=== PATIENT | female | born 1965 | race Caucasian/White ===

== ENCOUNTER 2016-10-13 08:29 | Emergency (ER) | payer BC ==
[2016-10-13] MEDS ORDERED: NS 0.9% 1000 ML* 2,000 ML IV ONE (08:49)
--- NOTE | 2016-10-13 09:13 | RAD ---
HISTORY: Palpitation COMPARISONS: September 09, 2009 VIEWS:1: Single frontal portable view of the chest at 9:00 AM FINDINGS: LINES AND TUBES: None. CARDIOMEDIASTINAL SILHOUETTE: The cardiomediastinal silhouette is normal for portable technique. PLEURA: The costophrenic angles are sharp. No pleural abnormalities are noted. LUNG PARENCHYMA: The lungs are clear. ABDOMEN: The upper abdomen is clear. There is no subphrenic gas. BONES AND SOFT TISSUES: No bone or soft tissue abnormalities are noted. IMPRESSION: NO ACTIVE CARDIOPULMONARY DISEASE.
[2016-10-13 09:14] LABS: Hematocrit 40 % (35-47); Hemoglobin 13.2 g/dl (12.0-16.0); Mean Corpuscular HGB Conc 33 g/dl (31-36); Mean Corpuscular Hemoglobin 32 pg (27-31); Mean Corpuscular Volume 95 fL (80-97); Mean Platelet Volume 9 um3 (7.4-10.4); Red Blood Count 4.15 10^6/ul (4.0-5.4); Red Cell Distribution Width 13 % (10.5-15); White Blood Count 5.3 10^3/ul (3.5-10.8)
[2016-10-13 09:25] LABS: Albumin 4.2 g/dL (3.2-5.2); Calcium 8.9 mg/dL (8.6-10.3); Globulin 2.3 g/dL (2-4); Total Bilirubin 0.7 mg/dL (0.2-1.0); Total Protein 6.5 g/dL (6.4-8.9)
[2016-10-13 09:41] LABS: Potassium 3.9 mmol/L (3.5-5.0)
[2016-10-13 09:46] LABS: TSH (Thyroid Stimulating Horm) 2.48 mcIU/mL (0.34-5.60)
[2016-10-13] MEDS ORDERED: Digoxin IV* 0.5 MG/2 ML AMP (0.25 MG/ML) IV SLOW PU ONE (10:21)
[2016-10-13 10:37] LABS: Urine Bilirubin Negative (Negative); Urine Glucose Negative (Negative); Urine Nitrite Negative (Negative)
[2016-10-13 10:44] LABS: BUN/Creatinine Ratio 12.9 (8-20); EGFR African American 91.4 (>60); EGFR Non-African American 71.1 (>60)
[2016-10-13] MEDS: KCL 10 MEQ/50 ML IVPREMIX* 10 MEQ/50 ML BAG IV SCH ×2 (11:14→11:58)
[2016-10-13] MEDS ORDERED: Enoxaparin(*) 80 MG/0.8 ML SYR SUBCUT ONE (11:54)
[2016-10-13] MEDS ORDERED: Diltiazem IV VIAL* 125 MG in D5W 100 ML BAG* 100 ML IV ONE (11:54)
[2016-10-13] MEDS ORDERED: Diltiazem IV* 5 MG/ML 5 ML VIAL (for loading dose/IV Push) (25 MG) IV SLOW PU ONE (11:54)
[2016-10-13] MEDS ORDERED: fentaNYL* 50 MCG/ML 2 ML VIAL (100 MCG VIAL) ONE (13:17)
[2016-10-13] MEDS ORDERED: Midazolam* 1 MG/ML 5 ML VIAL (5 MG) ONE (13:17)
[2016-10-13] MEDS ORDERED: Naloxone* 0.4 MG/ML 1 ML VIAL ONE (13:18)
[2016-10-13] MEDS ORDERED: Flumazenil* 0.1 MG/ML 5 ML MDV ONE (13:18)
[2016-10-13 15:44] VITALS: BP 110/39
--- NOTE | 2016-10-13 15:55 | TEE ---
Patient: JEREMIAS HOPKINS [facility] Rec#: [id number] : 1965 Date: 10/13/2016 Age: 51y Height: 172.72 cm / 68.0 in Weight: 66.68 kg / 147.0 lbs Sex: F BSA: 1.79 Room#: [facility] Type: Outpatient Referring: Ceferino Martinez MD Reading: Ceferino Martinez MD [address] Court Registrar: Louise Yadav RDCS Nurse: NIKOS Cuba Alicia CC: Sonia Foster MD Transesophageal Echocardiogram Indication: A-fib BP: 118/63 HR: 133 Rhythm: A-Fib Findings History: A-fib 2009 Technical Comments: The study quality is good. Left Ventricle: The left ventricular chamber size is normal. There is mildly decreased left ventricular systolic function.Relative anterior anteroseptal hypokinesis. The estimated ejection fraction is 45-50%. The assessment of diastolic function is non-diagnostic. Left Atrium: The left atrium is moderately dilated. No thrombus is visualized within the left atrium. There is no thrombus visualized in the left atrial appendage. Right Ventricle: The right ventricular cavity size is normal. The right ventricular global systolic function is mildly reduced. Right Atrium: The right atrium is mildly dilated. Interatrial septum appears intact without evidence of shunting. A patent foramen ovale is not demonstrated by color Doppler. Aortic Valve: The aortic valve is trileaflet. There is no evidence of aortic regurgitation. There is no evidence of aortic stenosis. Mitral Valve: The mitral valve leaflets are mildly thickened. There is mild to moderate mitral regurgitation. Varies somewhat with the rapid irregular rhythm. There is no evidence of mitral stenosis. Tricuspid Valve: The tricuspid valve leaflets are normal. There is trace tricuspid regurgitation. There is no tricuspid stenosis. Pulmonic Valve: The pulmonic valve appears normal. There is no evidence of pulmonic regurgitation. Pericardium: There is no significant pericardial effusion. Aorta: There is no dilatation of the ascending aorta. There is no dilation of the aortic root. There is no plaque visualized in the ascending aorta. There is no plaque visualized in the transverse aorta. Pulmonary Artery: The main pulmonary artery appears normal. Venous: The bicaval view was obtained and appears normal. The pulmonary veins appear normal in size. 3 of 4 visualized. The flow pattern of the pulmonary veins appear normal. GLENNA Procedures: All standard views were attempted within the limitations of patient tolerance and safety. History and physical as well as labs were reviewed. The patient was in a fasting state. Risks and benefits of the procedure, including alternatives, were discussed and written informed consent was obtained. The patient and/or their health care outreach representative expressed understanding of the procedure, risks and benefits. Baseline and continuous monitoring of blood pressure, heart rate, pulse oximetry and heart rhythm was performed throughout the procedure. The appropriate time-out procedure was performed as per [facility] protocol. The patient was placed in the left lateral decubitus position. The patient received IV Midazolam with a total dose of 9 mg. The patient received IV Fentanyl with a total dose of 50 mcg. An oral bite block was inserted for protection of oral dentition. The multiplane transesophageal echocardiogram probe was inserted through the posterior oropharynx and advanced into the esophagus without difficulty. Multiple 2D images were obtained of the heart and its related structures. Color flow Doppler was used for evaluation. Spectral Doppler was also used. The atrial septum was interrogated with color flow Doppler. At the conclusion of the procedure the probe was removed with continuous suction without complications. The patient tolerated the procedure with no apparent complications. Conclusions There is mildly decreased left ventricular systolic function.Relative anterior anteroseptal hypokinesis. The estimated ejection fraction is 45-50%. The left atrium is moderately dilated. No thrombus is visualized within the left atrium. The right ventricular global systolic function is mildly reduced. The right atrium is mildly dilated. There is trace tricuspid regurgitation. There is mild to moderate mitral regurgitation. The MR varies somewhat with the rapid irregular rhythm. There is trace tricuspid regurgitation. Similar to 2.2010 Measurements Name Value Normal Range Aortic Annulus 1.9 cm (1.4 - 2.6) Ao root diameter (2D) 3.3 cm (2.1 - 3.5) Ascending Ao 3 cm (2.1 - 3.4) Name Value Normal Range MV E-wave Vmax 0.75 m/sec - MV deceleration time 220.9 msec - MV E:A ratio 82.73 ratio -
--- NOTE | 2016-10-13 16:07 | CONS ---
CC: Dr. Foster CARDIOLOGY CONSULTATION: DATE OF CONSULT: 10/13/16 REASON FOR EVALUATION: Atrial fibrillation. HISTORY OF PRESENT ILLNESS: This is a very pleasant 51-year-old woman who has a history of paroxysmal atrial fibrillation, who was in her usual state of health until last night. She got up to go to the bathroom, noticed her heart was a little fast and went back to sleep. She said she woke up this morning and noted that her heart was fast. While she was trying to make breakfast, she noted that her heart was speeding up and she was lightheaded, had some tingling in her hands. That was about 7:30 a.m. Because of those symptoms, she decided to go to the emergency room. She was in the emergency room, noted to be in atrial fibrillation with rapid ventricular response varying from the 90s to 140s. She also had blood pressure 90s to 120s. She sometimes feels a little lightheaded when her brother pressure is higher. She received some IV fluids here and is feeling better, but still has heart rates in the 120s to 140s. She denies syncope. No orthopnea. No fevers, chills, sweats, hematemesis, hematochezia, strokes, or mini strokes. She normally exercises regularly, plays hockey once a week and feels well doing that. She also works out at the gym and does the treadmill for 25 to 30 minutes 5 times a week. She has occasional alcohol use. She drinks one cup of tea a day and one cup of coffee a week. She denies hypertension, diabetes, hyperlipidemia, tobacco use. She had a cardioversion in 1998 and again in 2009. She apparently in April 2009 had a GLENNA and mild to moderate MR with EF of 45% to 50%. In May of 2009 , she had trace MR and normal EF of 55% to 60%. In 1998, she was first diagnosed with AFib at the [facility] when she had dyspnea , dizziness, and GLENNA cardioversion. In May 2002, she had a rapid ventricular response treated with IV diltiazem and converted spontaneously. PAST SURGICAL HISTORY: Includes a calcified breast nodule removed from her left breast about 5 years ago. She had a breast lumpectomy on the left in May of 2012. MEDICATIONS: Her only medication including a contraceptive 0.35 mg daily. As an inpatient, she is on IV fluids and got 1.25 mg of digoxin. ALLERGIES: Include seasonal allergies, no drug allergies. FAMILY HISTORY: Reveals a mother who has AFib at 82. Father who is 86 with hypertension. She has 2 brothers and a sister, alive and well. SOCIAL HISTORY: She is , accompanied by her and her one child. She works at the [employer]. REVIEW OF SYSTEMS: Review of systems x10 was negative except as above. PHYSICAL EXAM: She is a well-developed, well-nourished female, thin, in no apparent distress. Her blood pressure is varying from 94/40 to 119/73 and her blood pressure most recently was 147 systolic, no significant JVD. Atraumatic, normocephalic. Extraocular muscles intact. Sclerae anicteric. No significant JVD. Cardiac Exam: S1 and S2, irregular, rapid with a midsystolic click. No murmurs. Chest was clear. No CVAT. Abdomen: Bowel sounds present, nontender. Femoral pulses intact. Motor strength 5/5 bilaterally. Deep tendon reflexes 2/4. Alert and oriented x3. DIAGNOSTIC STUDIES/LAB DATA: Chest x-ray revealed no active cardiopulmonary disease, and EKG from 08:43 revealed AFib with a rapid ventricular response in the 120s, minor nonspecific ST-T changes. Her last EKG from October 2013 revealed sinus rhythm with no acute changes and her echocardiogram in November 2013 revealed EF of 50% to 55%, closer to 55%, trace to mild MR, trace TR, trace TI similar to December 2010, and her Holter monitor from October of 2013 revealed sinus rhythm with frequent PVCs. No APCs. No VT or SVT. She had 7199 VPCs and 14 APCs. IMPRESSION: My impression is that Mrs. Rojas has a recurrent episode of atrial fibrillation. Although it has been brief, she has a history of LV dysfunction in the past, and therefore, I recommend to follow on. Given the potential risks of stroke, I suggested subcu Lovenox 70 mg now and then oral anticoagulation for a month after cardioversion. She is to begin diltiazem cautiously 10 mg IV and then 5 mg an hour to see if we can control her rate and if she will convert. We will try to maintain potassium over 4 and she is being supplemented currently. Agree with a trial of digoxin given her low normal blood pressures. If she fails to convert, we will proceed with GLENNA-guided cardioversion. The risks and benefits were discussed with the patient, who understands and agrees to proceed. [id number]/[facility] #: [id number] addendum: pt successfully cardioverted. Discussed with Dr. Cruz. To start anticoagulation for 1 month. MTDD
--- NOTE | 2016-10-13 23:32 | CARD ---
CC: Dr. Martinez; Dr. Foster CARDIOLOGY PROCEDURE NOTE: DATE OF PROCEDURE: 10/13/16 REASON FOR PROCEDURE: Atrial fibrillation. INDICATIONS: This is a very pleasant 51-year-old woman with a longstanding history of paroxysmal at rial fibrillation, last cardioversion was in 2009. She developed racing heart rate last night assoc iated with some lightheadedness at times. She came to the emergency room, felt to be in rapid AFib. She was treated with IV digoxin and IV diltiazem with some slowing of her rate. DESCRIPTION OF PROCEDURE: Informed consent was obtained and she was in the fasting state. Risks an d benefits were reviewed and included but not limited to stroke, aspiration, and sore throat. The p atient had transesophageal echo, which was performed with 9 mg of Versed and 50 mcg of fentanyl. It revealed no left atrial appendage or left atrial thrombus. In addition, 2 mg of Versed was given and a single synchronized biphasic shock 120 joules was delive red with successful conversion to sinus rhythm. IMPRESSION: Paroxysmal atrial fibrillation with successful conversion to sinus rhythm. The patient will undergo recovery for conscious sedation. If she remains stable, consider discharge with a month of anticoagulation. [id number]/[facility] #: [id number]
== END 2016-10-13 16:00 | disposition home or self-care (01) ==
LOC: ED 08:29
DX: I48.91 Unspecified atrial fibrillation (principal)
CPT/HCPCS: 36415; 71010; 80053; 81003; 83605; 83735; 84443; 84484; 85025; 85610; 85730; 92960; 93005; 93312; 93325; 96360; 96374; 96375; 99156; 99157; 99285; J1160; J1650; J2250; J2310; J3010; J3480

== ENCOUNTER 2018-08-09 22:06 | Emergency (ER) | payer OTHER ==
[2018-08-09] MEDS ORDERED: Diltiazem IV push/loading dose 5 MG/ML 5 ML vial (25 mg) IV SLOW PU ONE (22:41)
[2018-08-09] MEDS ORDERED: Diltiazem IV VIAL* 125 MG in NS 0.9% 100 ML* 100 ML IV ONE (22:41)
[2018-08-09] MEDS ORDERED: NS 0.9% 1000 ML** 1,000 ML IV ONE (22:42)
[2018-08-09] MEDS ORDERED: Rivaroxaban TAB(*) 20 MG TAB PO SCH (23:00)
[2018-08-09] MEDS ORDERED: Propofol* 10 MG/ML 20 ML BTL IV PUSH ONE (23:27)
--- NOTE | 2018-08-09 23:29 | ED ---
HPI Cardiac - HPI Summary HPI Summary: This pt is a 53 y/o F presenting to [facility] with a CC of rapid heart rate. Her heart rate started moving fast before bed and then was still moving fast while laying down getting ready for bed tonight. Waited a minute or two due to Hx of episodes. Called friend to drive her to [facility]. She had a busy week but was extremely fatigued today. Has a HX of cardioversion and AFIB but does not take any medications. Pt states that she ate popcorn and coughed dramatically and her episode started after that. She denies HR, chest pain, and any alcoholic or substance ingested today. Pt reports that the rate changed about 20 minute [employer]. - History of Current Complaint Chief Complaint: EDDysrhythmPalp Stated Complaint: AFIB PER PT Time Seen by Provider: 08/09/18 22:41 Hx Obtained From: Patient Onset/Duration: Started Hours Ago, Still Present Time of Onset: 21:00 Timing: Constant Initial Severity: Mild Current Severity: None Pain Intensity: 0 Pain Scale Used: 0-10 Numeric Aggravating Factor(s): Nothing Alleviating Factor(s): Nothing Associated Signs and Symptoms: Positive: Other: - rapid heart rate. Negative: Chest Pain, Headaches - Allergy/Home Medications Allergies/Adverse Reactions: Allergies Allergy/AdvReac Type Severity Reaction Status Date / Time No Known Allergies Allergy Verified 08/09/18 22:09 Home Medications: Home Medications Loratadine [Claritin Reditabs 5 MG] 10 mg PO DAILY 08/09/18 [History Confirmed 08/09/18] PMH/Surg Hx/FS Hx/Imm Hx Previously Healthy: No Cardiovascular History: Reports: Hx Atrial Fibrillation Sensory History: Denies: Hx Legally Blind, Hx Deafness Opthamlomology History: Denies: Hx Legally Blind Infectious Disease History: No Infectious Disease History: Reports: Traveled Outside the [place] in Last 30 Days - Family History Known Family History: Negative: Diabetes - Social History Alcohol Use: Occasionally Hx Substance Use: No Substance Use Type: Reports: None Smoking Status (MU): Never Smoked Tobacco Review of Systems Positive: Palpitations. Negative: Chest Pain Negative: Headache All Other Systems Reviewed And Are Negative: Yes Physical Exam - Summary Physical Exam Summary: Appearance: Well-appearing, Well-nourished, lying in bed comfortably Skin: Warm, dry, no obvious rash Eyes: sclera anicteric, no conjunctival pallor ENT: mucous membranes moist, pharynx appears normal Neck: Supple, nontender Respiratory: Clear to auscultation, no signs of respiratory distress Cardiovascular: Normal S1, S2. No murmurs. Normal distal pulses in tibial and radial bilaterally. Rapid irregular irregularly heart rate. Abdomen: Soft, nontender, normal active bowel sounds present Musculoskeletal: Normal, Strength/ROM Intact Neurological: A&Ox3, awake and alert, mentation is normal, speech is fluent and appropriate Psychiatric: affect is normal, does not appear anxious or depressed Triage Information Reviewed: Yes Vital Signs On Initial Exam: Initial Vitals Temp Pulse Resp BP Pulse Ox 97.7 F 104 18 138/94 99 08/09/18 22:08 08/09/18 22:08 08/09/18 22:08 08/09/18 22:08 08/09/18 22:08 Vital Signs Reviewed: Yes Procedures - Procedure Summary Procedure Summary: Procedure: IV conscious sedation Indication:cardioversion of atrial fibrillation Informed consent obtained, pre-procedure worksheet completed, timeout completed. Pt on monitor, with O2 and resuscitation equipment at the bedside. Pt was given propofol, 75 mg total, with good effect. Pt remained arousable to painful stimuli, but was adequately sedated for the procedure. Pt was recovered uneventfully. After achieving a appropriate level of sedation, the patient was cardioverted with a sink shock at 150 J with conversion to normal sinus rhythm. Diagnostics - Vital Signs Vital Signs Temp Pulse Resp BP Pulse Ox 08/09/18 22:32 116 16 146/121 98 08/09/18 22:26 155 27 97 08/09/18 22:08 97.7 F 104 18 138/94 99 - Laboratory Lab Statement: Any lab studies that have been ordered have been reviewed, and results considered in the medical decision making process. - EKG 2218 Cardiac Rate: Tachycardia - 160 BPM EKG Rhythm: Sinus Tachycardia Summary of EKG Findings: Irregularly irregular heart rate 160 BPM, P waves, QRS complex, and T waves are within normal limits, in RVR. Re-Evaluation - Re-Evaluation First Eval Re-Evaluation Time: 23:55 Change: Improved Comment: Pt was successfully cardioverted. Will remain in the ED until the sedation effects wear off. Second Eval Re-Evaluation Time: 00:41 Change: Improved Comment: Sedation effects have worn off enough to allow the pt to be discharged. Pt will be discharged home. Disposition - Course Course Of Treatment: This pt is a 53 y/o F presenting to [facility] with a CC of rapid heart rate. Her heart rate started moving fast before bed and then was still moving fast while laying down getting ready for bed tonight. Waited a minute or two due to Hx of episodes. Irregularly irregular heart rate 160 BPM, P waves, QRS complex, and T waves are within normal limits, in RVR. The pt received a moderate sedation and will be discharged home after a cardioversion with a Dx of AFIB. The pt's sedation wore enough enough to be discharged home at 0043 on 08/10/18. The pt will receive discharge instructions and will be informed to follow up with Dr. Martinez tomorrow and to return to the ED with any new or worsening symptoms. - Differential Dx - Cardiopulmonary Differential Diagnoses - Cardiopulmonary: Atrial Fibrillation - Diagnoses Provider Diagnoses: Atrial fibrillation with rapid ventricular response Discharge - Sign-Out/Discharge Documenting (check all that apply): Patient Departure - discharge Patient Received Moderate/Deep Sedation with Procedure: Yes - Discharge Plan Condition: Improved Disposition: HOME Prescriptions: Rivaroxaban TAB(*) [Xarelto 20 mg] 20 mg PO DAILY #15 tab Patient Education Materials: A-fib (Atrial Fibrillation) (ED), Moderate Sedation (ED), Cardioversion (DC) Referrals: Ceferino Martinez MD [Medical Doctor] - Additional Instructions: Contact Dr. Martinez's office for a followup visit. He will need to discuss with you if you need to continue the anticoagulation, and if so for how long. - Billing Disposition and Condition Condition: IMPROVED Disposition: Home - Attestation Statements Document Initiated by Milagro: Yes Documenting Scribe: Casa [facility]comb Provider For Whom Milagro is Documenting (Include Credential): Jer Sandhu MD Scribe Attestation: Casa Erickson, brianed for Jer Sandhu MD on 08/10/18 at 0513. Scribe Documentation Reviewed: Yes Provider Attestation: The documentation as recorded by the [facility] accurately reflects the service I personally performed and the decisions made by me, Jer Sandhu MD Status of Scribe Document: Viewed
[2018-08-09] MEDS ORDERED: Rivaroxaban TAB(*) 20 MG TAB PO ONE (23:34)
[2018-08-10 00:40] VITALS: BP 117/53
== END 2018-08-10 00:43 | disposition home or self-care (01) ==
LOC: ED 22:06
DX: R00.2 Palpitations (principal); I48.2 Chronic atrial fibrillation
CPT/HCPCS: 93005; 96365; 96375; 99284; J2704

== ENCOUNTER 2021-03-03 16:28 | Observation (INO) ==
[2021-03-03 17:09] LABS: ABS Eosinophils 0.1 10^3/ul (0-0.6); ABS Lymphocytes 2.5 10^3/ul (1.0-4.8); ABS Monocytes 0.4 10^3/ul (0-0.8); ABS Neutrophils 5.3 10^3/ul (1.5-7.7); Eosinophil % 1.2 %; Hematocrit 39 % (35-47); Hemoglobin 13.4 g/dL (12.0-16.0); Lymphocyte % 29.6 %; Mean Corpuscular HGB Conc 34 g/dL (31-36); Mean Corpuscular Hemoglobin 32 pg (27-31); Mean Corpuscular Volume 92 fL (80-97); Mean Platelet Volume 8.9 fL (7.4-10.4); Platelet Count 219 10^3/uL (150-450); Red Blood Count 4.22 10^6 /uL (3.70-4.87); Red Cell Distribution Width 14 % (10-15); White Blood Count 8.4 10^3/uL (3.5-10.8)
[2021-03-03] MEDS ORDERED: Diltiazem IV push/loading dose 5 MG/ML 5 ML vial (25 mg) IV SLOW PU ONE (17:12)
[2021-03-03 17:15] LABS: INR 1.92 (0.86-1.15)
[2021-03-03 17:27] LABS: Albumin 4.6 g/dL (3.2-5.2); Albumin/Globulin Ratio 1.7 (1-3); Calcium 9.2 mg/dL (8.6-10.3); Globulin 2.7 g/dL (2-4); Potassium 3.7 mmol/L (3.5-5.0); Total Bilirubin 0.4 mg/dL (0.2-1.0); Total Protein 7.3 g/dL (6.4-8.9); eGFR CKD-EPI 76.4 (>60)
[2021-03-03] MEDS ORDERED: Metoprolol Tartrate 5 mg VIAL 5 ml VIAL (1 mg/ml) IV ONE (19:42)
[2021-03-04 09:08] LABS: ABS Eosinophils 0.1 10^3/ul (0-0.6); ABS Lymphocytes 1.9 10^3/ul (1.0-4.8); ABS Monocytes 0.4 10^3/ul (0-0.8); Eosinophil % 1.6 %; Hematocrit 39 % (35-47); Hemoglobin 13.3 g/dL (12.0-16.0); Lymphocyte % 34.5 %; Mean Corpuscular HGB Conc 34 g/dL (31-36); Mean Corpuscular Hemoglobin 31 pg (27-31); Mean Corpuscular Volume 92 fL (80-97); Mean Platelet Volume 8.9 fL (7.4-10.4); Platelet Count 203 10^3/uL (150-450); Red Blood Count 4.22 10^6 /uL (3.70-4.87); Red Cell Distribution Width 14 % (10-15); White Blood Count 5.4 10^3/uL (3.5-10.8)
[2021-03-04 09:22] LABS: Calcium 9.3 mg/dL (8.6-10.3); Potassium 4.2 mmol/L (3.5-5.0); eGFR CKD-EPI 81.9 (>60)
[2021-03-04] MEDS ORDERED: fentaNYL 100 mcg/2 ml 50 MCG/ML VIAL ONE (10:16)
[2021-03-04] MEDS ORDERED: Midazolam 5 mg/5 ml VIAL 1 mg/ml 5 ml VIAL (5 mg) ONE (10:16)
[2021-03-04] MEDS ORDERED: Flumazenil 0.5 mg/5 ml 0.1 MG/ML 5 ml VIAL ONE (10:16)
[2021-03-04] MEDS ORDERED: Naloxone 0.4 mg VIAL 0.4 mg/ml 1 ml VIAL ONE (10:16)
[2021-03-04 15:17] VITALS: BP 123/72
== END 2021-03-04 14:48 | disposition home or self-care (01) ==
LOC: ED 16:28 → EDHOLD 16:28 → MERGE 19:47 → SUATTDRO 19:47 → EDHOLD 03-04 15:16
PROVIDERS: ADMIT Hospitalist; ATTEND Internal Medicine
PROC: CARDVER (ICD-10-PCS; 2021-03-04 10:20)

== ENCOUNTER 2021-05-10 14:42 | Inpatient (IN) ==
[2021-05-10 15:46] LABS: ABS Lymphocytes 0.4 10^3/ul (1.0-4.8); ABS Monocytes 0.3 10^3/ul (0-0.8); ABS Neutrophils 9.6 10^3/ul (1.5-7.7); Eosinophil % 0.2 %; Hematocrit 40 % (35-47); Hemoglobin 13.5 g/dL (12.0-16.0); Lymphocyte % 3.9 %; Mean Corpuscular HGB Conc 34 g/dL (31-36); Mean Corpuscular Hemoglobin 31 pg (27-31); Mean Corpuscular Volume 91 fL (80-97); Platelet Count 205 10^3/uL (150-450); Red Blood Count 4.34 10^6 /uL (3.70-4.87); Red Cell Distribution Width 13 % (10-15); White Blood Count 10.3 10^3/uL (3.5-10.8)
[2021-05-10] MEDS ORDERED: Magnesium Sulfate 2 gm BAG 2 GM/50 ML BAG IVPB ONE (15:51)
[2021-05-10] MEDS ORDERED: NS 0.9% 1000 ml BAG 1,000 ML IV ONE ×2 (15:51→17:22)
[2021-05-10] MEDS ORDERED: Diltiazem IV push/loading dose 5 MG/ML 5 ML vial (25 mg) IV SLOW PU ONE (15:51)
[2021-05-10] MEDS ORDERED: Diltiazem IV BAG D5W Premix 125 MG/125 ML BAG IV SCH (16:00)
[2021-05-10 16:31] LABS: Albumin 4.5 g/dL (3.2-5.2); Albumin/Globulin Ratio 2.1 (1-3); Calcium 9.7 mg/dL (8.6-10.3); Globulin 2.1 g/dL (2-4); Magnesium 1.7 mg/dL (1.9-2.7); Potassium 4.3 mmol/L (3.5-5.0); Total Protein 6.6 g/dL (6.4-8.9); eGFR CKD-EPI 51.2 (>60)
[2021-05-10] MEDS: Diltiazem (ADVAN VIAL) 100 MG/100 ML ADDV.BAG IV SCH ×2 (16:31→22:50)
[2021-05-10 17:10] LABS: Troponin I 0.01 ng/mL (<0.03)
[2021-05-10] MEDS ORDERED: Lactated Ringers 1000 ml BAG 1,000 ML IV ONE (21:00)
[2021-05-11 04:53] LABS: ABS Lymphocytes 0.9 10^3/ul (1.0-4.8); ABS Monocytes 0.3 10^3/ul (0-0.8); ABS Neutrophils 5.1 10^3/ul (1.5-7.7); Eosinophil % 0.3 %; Hematocrit 34 % (35-47); Hemoglobin 11.4 g/dL (12.0-16.0); Lymphocyte % 14.3 %; Mean Corpuscular HGB Conc 34 g/dL (31-36); Mean Corpuscular Hemoglobin 31 pg (27-31); Mean Corpuscular Volume 91 fL (80-97); Mean Platelet Volume 9.1 fL (7.4-10.4); Platelet Count 171 10^3/uL (150-450); Red Blood Count 3.68 10^6 /uL (3.70-4.87); Red Cell Distribution Width 13 % (10-15); White Blood Count 6.3 10^3/uL (3.5-10.8)
[2021-05-11 05:48] LABS: Calcium 8.5 mg/dL (8.6-10.3)
[2021-05-11 05:54] LABS: eGFR CKD-EPI 93.1 (>60)
[2021-05-11] MEDS: Diltiazem (ADVAN VIAL) 100 MG/100 ML ADDV.BAG IV SCH (09:17)
[2021-05-11] MEDS ORDERED: Midazolam 5 mg/5 ml VIAL 1 mg/ml 5 ml VIAL (5 mg) ONE (09:25)
[2021-05-11] MEDS ORDERED: Naloxone 0.4 mg VIAL 0.4 mg/ml 1 ml VIAL ONE (09:25)
[2021-05-11] MEDS ORDERED: fentaNYL 100 mcg/2 ml 50 MCG/ML VIAL ONE (09:26)
[2021-05-11] MEDS ORDERED: Flumazenil 0.5 mg/5 ml 0.1 MG/ML 5 ml VIAL ONE (09:26)
[2021-05-11] MEDS ORDERED: NORMOSOL-R pH 7.4 1000 mL BAG 1,000 ML IV SCH (10:00)
[2021-05-11 15:07] VITALS: BP 102/48
== END 2021-05-11 15:45 | disposition home or self-care (01) | DRG 309 ==
LOC: ED 14:42 → EDHOLD 17:56 → ICU 20:02
PROVIDERS: ADMIT Internal Medicine; ATTEND Internal Medicine